=== PATIENT | male | born 1950 | race Caucasian/White ===

== ENCOUNTER 2023-12-30 06:54 | Day surgery (SDC) | payer MEDICARE, OTHER ==
[~2023-12-30] VITALS: Ht 167.6 cm; Wt 77.1 kg
[2023-12-30] MEDS ORDERED: fentaNYL citrate 0.05 MG/ML VIAL ONE (08:06)
[2023-12-30] MEDS: fentaNYL citrate 0.05 MG/ML VIAL IVP ONE (08:55)
[2023-12-30] MEDS: LIDOCAINE 2% 100 MG/5 ML UJET TP ONE (09:01)
== END 2023-12-30 10:05 | disposition home or self-care (01) ==
LOC: MOR 06:54 → MMU 06:56 → MOR 10:05
PROVIDERS: ATTEND Internal Medicine Gastroenterology
DX: Z12.11 Encounter for screening for malignant neoplasm of colon (principal); K64.8 Other hemorrhoids; K57.30 Diverticulosis of large intestine without perforation or abscess without bleeding; D12.2 Benign neoplasm of ascending colon; D12.0 Benign neoplasm of cecum; D12.3 Benign neoplasm of transverse colon; I10 Essential (primary) hypertension; Z79.899 Other long term (current) drug therapy; Z98.890 Other specified postprocedural states
CPT/HCPCS: 45385; J3010